=== PATIENT | female | born 1940 | race Caucasian/White ===

== ENCOUNTER 2024-09-07 20:50 | Emergency (ER) | payer MEDICARE, SELFPAY ==
[~2024-09-07] VITALS: Ht 157.5 cm; Wt 88.1 kg
[2024-09-07 21:31] VITALS: O2SAT 100
[2024-09-07 21:41] VITALS: BP 148/77; TEMP 97.7
== END 2024-09-07 21:42 | disposition short-term general hospital (02) ==
LOC: M ED 20:50
DX: I49.9 Cardiac arrhythmia, unspecified (principal); Z95.0 Presence of cardiac pacemaker; I25.119 Atherosclerotic heart disease of native coronary artery with unspecified angina pectoris; I10 Essential (primary) hypertension